=== PATIENT | female | born 1975 | race Caucasian/White ===

== ENCOUNTER 2019-12-21 09:18 | Outpatient (CLI) | payer BC ==
[2019-12-21 10:35] LABS: BHCG - Serum Negative (NEGATIVE); Pregs Control Background? CLEAR/WHITE (CLR/WHITE); Pregs Control Bar Appear? YES (CONTROL BAR)
== END 2019-12-21 09:19 | disposition home or self-care (01) ==
LOC: LABBT 09:18
PROVIDERS: ATTEND Obstetrics & Gynecology
DX: Z01.812 Encounter for preprocedural laboratory examination (principal); N92.0 Excessive and frequent menstruation with regular cycle; N39.3 Stress incontinence (female) (male)
CPT/HCPCS: 84703

== ENCOUNTER 2019-12-27 09:20 | Day surgery (SDC) | payer BC ==
[2019-12-21 10:29] LABS: Hemoglobin 13.8 g/dL (12.0-16.0); Mean Corpuscular HGB CONC 33.4 g/dL (32.0-36.0); Mean Corpuscular Hemoglobin 32.2 pg (27.0-31.0); Mean Corpuscular Volume 96.3 fL (78.0-98.0); Mean Platelet Volume 9.2 fL (7.4-10.4); Platelet Count 209 thou/uL (130-400); RBC Distribution Width 12.4 % (11.5-14.5); Red Blood Cell (RBC) Count 4.28 mill/uL (4.20-5.40); White Blood Cell (WBC) Count 4.6 thou/uL (4.8-10.8)
[2019-12-27] MEDS ORDERED: Famotidine/PF 20 mg/2ml Vial ONE (10:05)
[2019-12-27] MEDS ORDERED: CeleCOXIB 100 MG CAP ONE (10:05)
[2019-12-27] MEDS ORDERED: Gabapentin 300 MG CAP ONE (10:05)
[2019-12-27] MEDS ORDERED: PROPOFOL 200 MG/20 ML VIAL ONE (10:09)
[2019-12-27] MEDS ORDERED: Ondansetron PF 4 MG/2 ML Vial ONE (10:09)
[2019-12-27] MEDS ORDERED: Lidocaine 1% PF 5 ML VIAL ONE (10:09)
[2019-12-27] MEDS ORDERED: Dexamethasone 20 MG/5 ML VIAL ONE (10:09)
[2019-12-27] MEDS ORDERED: Metoclopramide HCl 10 MG/2 ML VIAL ONE (10:09)
[2019-12-27] MEDS ORDERED: Ketorolac Tromethamine 30 MG/ML VIAL ONE (10:09)
[2019-12-27] MEDS ORDERED: Midazolam HCl 2 mg/2 ml Vial ONE (10:59)
[2019-12-27] MEDS ORDERED: Fentanyl 100 MCG/2 ML VIAL ONE ×3 (11:13→13:38)
--- NOTE | 2019-12-27 11:37 | HP ---
HISTORY OF PRESENT ILLNESS: Ms. Esquivel is a 44-year-old white female who has been having increasingly heavy menstrual cycles. Did respond well to Lysteda in the past. Her periods though have been so heavy at times she cannot leave her house. She has been anemic and taking oral iron therapy prescribed by her primary care physician, Dr. Dela Cruz and has been evaluated every 3 months for anemic followup. She also is reporting frequent loss of urine with cough, sneezing, etc. There was no urge-associated incontinence issues. PAST MEDICAL HISTORY: Hypothyroidism and some anxiety. PAST SURGICAL HISTORY: Two sections and one vaginal delivery. SOCIAL HISTORY: She does not smoke. No excessive alcohol use. CURRENT MEDICATIONS: Nature-Throid 30 mg tablet p.o. daily and 15 mg p.o. daily, fluoxetine 40 mg tablet daily, bupropion 300 mg XL daily, alprazolam 0.5 mg one p.o. p.r.n. anxiety. ALLERGIES: SHE HAS NO KNOWN DRUG ALLERGIES. PHYSICAL EXAMINATION: VITAL SIGNS: Her height is 5 feet 3 inches, weight 185, BMI 32.8, blood pressure 110/72, pulse 73, respiratory rate 18, and O2 saturation on room air is 98%. HEENT: Within normal limits. CHEST: Clear to auscultation. HEART: Regular rate and rhythm. S1, S2. ABDOMEN: Soft, nontender, and nondistended. Well healed section incision noted. PELVIC: Vulva and vagina had no lesions. Cervix had no lesions. She does have a hypermobile UV angle of 45 degrees with Valsalva and loss of urine. Her uterus is mildly enlarged, approximately 8 -week size. Transvaginal ultrasound was performed showing an anterior 3 cm uterine fibroid, not involving the uterine cavity. Adnexa had no masses and are nontender. ASSESSMENT: This is a 44-year-old white female with menorrhagia with anterior fundal uterine fibroid, not involving the uterine cavity and also genuine stress incontinence. PLAN: Plan is to proceed with a hysteroscopy, D and C with Violet endometrial ablation followed by Advantage Fit TVT with cystoscopy. Risks and benefits of procedure have been discussed in detail and set for surgery later this morning. Job ID: [id number]
[2019-12-27] MEDS ORDERED: Lidocaine 1% w/Epinephrine 1:100K 20 ML VIAL ONE (11:42)
[2019-12-27] MEDS ORDERED: HYDROcodone/Acetaminophen 5/325 mg Tablet ONE (15:40)
--- NOTE | 2019-12-27 19:43 | OP ---
DATE OF PROCEDURE: 12/27/2019 PREOPERATIVE DIAGNOSES: 1. 44-year-old white female, G3, P3, prior x2 with menorrhagia. 2. Genuine stress incontinence. PROCEDURES PERFORMED: 1. Diagnostic hysteroscopy, dilation and curettage with endometrial ablation via Violet device. 2. Advantage Fit TVT with cystoscopy. ASSISTANCE SURGEON: Kasey Grigsby PA-C for the TVT procedure. ANESTHESIA: General endotracheal. ESTIMATED BLOOD LOSS: 25 mL. COMPLICATIONS: None. COUNTS: Correct x2. FINDINGS: 1. Endometrial cavity. Hysteroscopic evaluation showed normal cavity with no evidence of polyps or submucosal fibroids and post ablation showed good ablation of the uterine corpus cornua and lower uterine segment with sparing of the endocervical cavity. 2. Post TVT cystoscopy showed no evidence of the bladder mucosal lesions or perforation or foreign bodies. Bilateral ureteral orifices visualized with bilateral efflux noted. DISPOSITION: Recovery room, stable and then plan for transfer to Day Stay for voiding trials and potential discharge home. DESCRIPTION OF PROCEDURE: The patient previously received informed consent in regard to surgery. She was taken back to the operating room, where she received a general endotracheal anesthetic agent without complications. She was placed in dorsal lithotomy position with use of Ottoniel stirrups and prepped and draped in usual sterile fashion. In and out catheterization of bladder was performed on the prep process. A side-arm speculum was placed in vagina. Anterior lip of cervix was grasped with single-tooth tenaculum. The uterus sounded to 10 cm. The cervix was then sequentially dilated to allow a size 18 Dorman dilator. The 30-degree hysteroscope was then introduced through the cervical os and the uterus was distended with distention media of normal saline at 80 mm of pressure. Endometrial cavity was evaluated with the previously mentioned findings. Then sharp curettage of the cavity was performed and this was sent for final pathology of the endometrial curettings. The Violet device was then assembled. The operative console was had technical difficulties. We tried several times to remedy this and the touch screen was cracked and was unable to perform the usual checks. I then had my rn neurosurgical go to my office and retrieve the Violet endometrial ablation I had in my office. This was brought in and she checked the device and functioned well. We switched the devices out and then was able to perform the Violet endometrial ablation with my office Violet console. The treatment length was set at 6 cm. The Violet handpiece was placed through the cervical os in the fundus and the rays were displayed. The cavity was metered and was in the proper position. The cavity assessment was intact and the ablation was carried out for 120 second treatment cycle. The device was then removed and repeat hysteroscope of the uterine cavity showed good ablation as previously described. The tenaculum was then removed and pressure was placed at the tenaculum site for hemostasis. We then placed the Brasher catheter. The bladder was drained. Hydrodissection of the symphysis pubic region had been carried out with 90 mL of sterile saline. Prior to this with a spinal needle, injected in the space of Retzius with fluid distention. The markings for exiting of the TVT trocars had been made with the midline being just behind the midline symphysis pubis and then 2 cm in the right and left were marked for trocar exit points. The mid urethra was identified. The 2 Allis clamps were placed superiorly and inferiorly to this. The vaginal mucosa was infiltrated with 1% lidocaine with epinephrine in this area and also the tunneling tracts bilaterally. A 1.5 cm midline incision over the vaginal mucosa in the mid urethra was then made. The edges of the vaginal mucosa were grasped with 2 Allis clamps. I then used a Metzenbaum scissor to dissect submucosally into the direction of the space of Retzius and the end of the junction of the inferior pubic ramus and symphysis pubis bilaterally. Then, the trocar for the Advantage Fit TVT was prepared. The mesh was placed as usual and as directed. The left tunnel that was previously made in the vaginal mucosa. The trocar was placed through the previously dissected tunnel and the trocar was just around the symphysis pubis and exited out the previously marked spot just 2 cm left to the midline behind the symphysis pubis. The trocar was then grasped by my special education educational assistant and the trocar was backed out with the tip of the plastic tip of the mesh being grasped with the Panda. The mesh was symboled and made sure that it was in the right direction. It was then re-loaded on the Advantage Fit TVT trocar. This was then carried out through the previously dissected tunnel again on the patient's right side exiting 2 cm with 2 cm marked exit site. The mesh was grasped with a Panda clamp. The trocar was then backed out. We then removed the Brasher catheter guide that had been deviating the bladder to the ipsilateral side during each trocar placement. A 70 degree cystoscope was then placed through the urethra and the bladder was distended. There was no evidence of any trocar or mesh placement through the bladder cavity or mucosal lesions seen. Bilateral ureteral orifices were also visualized and efflux on each were noted of urine. The cystoscope was then removed. I arranged the TVT mesh to be equal on each side, symmetric, and then I placed a Chambers scissor behind the mesh just in between it and the mid urethral incision site. The plastic stay clamp was cut and the plastic covering over the mesh was pulled up and out by my special education educational assistant and then each mesh was then trimmed at the skin level with a good tight fit overlying the Chambers scissors. Once this was trimmed, then the Chambers scissor was removed. The vaginal mucosa and the mid urethra area were then closed with a running locking 2-0 Vicryl suture for hemostasis. Brasher catheter was reinserted and clear urine was draining. The patient was then awakened from anesthesia after Dermabond was placed at the trocar exiting sites and over the mons pubis region. Estimated blood loss was 25 mL. The patient was doing well and was transferred to recovery room. Job ID: [id number]
== END 2019-12-27 16:14 | disposition home or self-care (01) ==
LOC: SDC 09:20
PROVIDERS: ATTEND Obstetrics & Gynecology
PROC: 0TSD0ZZ Reposition Urethra, Open Approach (ICD-10-PCS; principal; 2019-12-27)
PROC: 0U5B8ZZ Destruction of Endometrium, Via Natural or Artificial Opening Endoscopic (ICD-10-PCS; principal; 2019-12-27)
DX: N39.3 Stress incontinence (female) (male) (principal); D25.9 Leiomyoma of uterus, unspecified; E03.9 Hypothyroidism, unspecified; F41.9 Anxiety disorder, unspecified; Z79.899 Other long term (current) drug therapy
CPT/HCPCS: 85027; 86850; 86900; 86901; 88305; C1781; J0690; J1100; J1885; J2001; J2250; J2405; J2704; J2765; J3010; S0028